=== PATIENT | male | born 1965 | race Caucasian/White ===

== ENCOUNTER 2018-02-03 12:56 | Emergency (ER) | payer MEDICAID ==
[~2018-02-03] VITALS: Ht 177.8 cm; Wt 82.5 kg
[2018-02-03 13:02] VITALS: Ht 177.8 cm; Wt 82.5 kg
[2018-02-03 13:57] LABS: BASOPHIL % 0.5 % (0-2); RED CELL DISTRIBUTION WIDTH 14.2 % (11.5-14.5)
[2018-02-03 14:05] LABS: microscopic required? NO
[2018-02-03 14:06] LABS: PLATELET COUNT 83 x10^3mcL (130-400)
[2018-02-03 14:26] LABS: urine erythrocyte NEGATIVE (NEGATIVE)
[2018-02-03 14:34] LABS: CALCIUM 8.5 mg/dL (8.5-10.1); CARBON DIOXIDE 25.9 mmol/L (21-32); CHLORIDE SERUM 106 mmol/L (98-107); CREATININE SERUM 0.6 mg/dL (0.7-1.3); GFR1 > 60 mL/min; GLUCOSE SERUM 90 mg/dL (74-106); POTASSIUM SERUM 4.1 mmol/L (3.5-5.1); SODIUM SERUM 135 mmol/L (136-145)
[2018-02-03 14:39] LABS: ALKALINE PHOSPHATASE 117 U/L (46-116); ALT/SGPT 253 U/L (16-63); AMYLASE 75 U/L (25-115); AST/SGOT 288 U/L (15-37); BILIRUBIN TOTAL 1.33 mg/dL (0.20-1.00); LIPASE 279 IU/L (73-393); TOTAL PROTEIN, SERUM 7.4 g/dL (6.4-8.2)
[2018-02-03 15:34] VITALS: BP 145/92
== END 2018-02-03 15:34 | disposition home or self-care (01) ==
LOC: ED 12:56
PROVIDERS: Emergency Medicine
DX: B17.10 Acute hepatitis C without hepatic coma (principal); R19.7 Diarrhea, unspecified; I10 Essential (primary) hypertension; F17.200 Nicotine dependence, unspecified, uncomplicated
CPT/HCPCS: J7030

== ENCOUNTER 2019-10-09 16:36 | Inpatient (IN) | payer OTHER ==
[~2019-10-09] VITALS: Ht 175.3 cm; Wt 95.3 kg
[2019-10-09 16:38] VITALS: Ht 175.3 cm; Wt 95.3 kg
[2019-10-09 18:18] LABS: BASOPHIL % 0.7 % (0-2); PLATELET COUNT 58 x10^3mcL (130-400); RED CELL DISTRIBUTION WIDTH 15.1 % (11.5-14.5)
[2019-10-09 18:28] LABS: CALCIUM 8.1 mg/dL (8.5-10.1); CARBON DIOXIDE 23.6 mmol/L (21-32); CHLORIDE SERUM 101 mmol/L (98-107); CREATININE SERUM 0.8 mg/dL (0.7-1.3); GFR1 > 60 mL/min; GLUCOSE SERUM 119 mg/dL (74-106); SODIUM SERUM 134 mmol/L (136-145)
[2019-10-09 18:33] LABS: ALKALINE PHOSPHATASE 126 U/L (46-116); ALT/SGPT 46 U/L (16-63); AST/SGOT 62 U/L (15-37); BILIRUBIN TOTAL 3.9 mg/dL (0.20-1.00); TOTAL PROTEIN, SERUM 7.6 g/dL (6.4-8.2)
[2019-10-09 18:52] LABS: ALBUMIN 2.8 g/dL (3.4-5.0); CHOLESTEROL 93 mg/dL (<200); HDL CHOLESTEROL 22 mg/dL (40-60)
[2019-10-09 18:58] LABS: microscopic required? NO
[2019-10-09 19:20] LABS: UA SPECIFIC GRAVITY 1.025 (1.005-1.035); urine erythrocyte NEGATIVE (NEGATIVE)
[2019-10-09] MEDS ORDERED: AMBIEN10 MG PO (19:52)
[2019-10-09] MEDS ORDERED: LISINOPRIL40 MG PO (19:52)
[2019-10-09 20:42] VITALS: BP 137/66
[2019-10-10 05:07] LABS: BASOPHIL % 0.3 % (0-2)
[2019-10-10 05:08] LABS: RED CELL DISTRIBUTION WIDTH 14.6 % (11.5-14.5)
[2019-10-10 05:09] LABS: PLATELET COUNT 44 x10^3mcL (130-400)
[2019-10-10 05:34] LABS: ALKALINE PHOSPHATASE 115 U/L (46-116); ALT/SGPT 40 U/L (16-63); AST/SGOT 55 U/L (15-37); CALCIUM 7.9 mg/dL (8.5-10.1); CARBON DIOXIDE 30.9 mmol/L (21-32); CHLORIDE SERUM 105 mmol/L (98-107); CREATININE SERUM 0.8 mg/dL (0.7-1.3); GFR1 > 60 mL/min; GLUCOSE SERUM 104 mg/dL (74-106); POTASSIUM SERUM 4.2 mmol/L (3.5-5.1); SODIUM SERUM 138 mmol/L (136-145); TOTAL PROTEIN, SERUM 6.6 g/dL (6.4-8.2)
[2019-10-10 05:36] LABS: ALBUMIN 2.4 g/dL (3.4-5.0)
[2019-10-10 05:45] VITALS: BP 116/73
[2019-10-10 08:02] VITALS: BP 117/72
[2019-10-10 12:14] VITALS: BP 120/69
[2019-10-10 15:12] VITALS: BP 133/79
[2019-10-10 20:44] VITALS: BP 127/82
[2019-10-11 06:07] VITALS: BP 95/51
[2019-10-11 06:38] LABS: BASOPHIL % 0.3 % (0-2)
[2019-10-11 06:39] LABS: CALCIUM 8.1 mg/dL (8.5-10.1); CARBON DIOXIDE 29.7 mmol/L (21-32); CHLORIDE SERUM 102 mmol/L (98-107); CREATININE SERUM 0.7 mg/dL (0.7-1.3); GFR1 > 60 mL/min; GLUCOSE SERUM 131 mg/dL (74-106); MAGNESIUM 1.7 mg/dL (1.8-2.4); POTASSIUM SERUM 3.9 mmol/L (3.5-5.1); SODIUM SERUM 136 mmol/L (136-145)
[2019-10-11 07:20] LABS: PLATELET COUNT 58 x10^3mcL (130-400); RED CELL DISTRIBUTION WIDTH 14.6 % (11.5-14.5)
[2019-10-11 08:05] VITALS: BP 113/72
[2019-10-11 11:37] VITALS: BP 112/65
[2019-10-11 16:13] VITALS: BP 116/62
[2019-10-11 20:25] VITALS: BP 123/78
[2019-10-12 05:53] VITALS: BP 110/62
[2019-10-12 08:05] LABS: BASOPHIL % 0.5 % (0-2); RED CELL DISTRIBUTION WIDTH 14.3 % (11.5-14.5)
[2019-10-12 08:06] LABS: PLATELET COUNT 63 x10^3mcL (130-400)
[2019-10-12 08:37] LABS: CALCIUM 8.1 mg/dL (8.5-10.1); CREATININE SERUM 0.7 mg/dL (0.7-1.3); GFR1 > 60 mL/min; GLUCOSE SERUM 136 mg/dL (74-106); MAGNESIUM 1.6 mg/dL (1.8-2.4)
[2019-10-12 08:45] VITALS: BP 101/58
[2019-10-12 09:17] LABS: CHLORIDE SERUM 104 mmol/L (98-107); POTASSIUM SERUM 4.1 mmol/L (3.5-5.1); SODIUM SERUM 136 mmol/L (136-145)
[2019-10-12 12:21] VITALS: BP 140/86
[2019-10-12 16:39] VITALS: BP 135/84
[2019-10-12] MEDS ORDERED: ACETAMINOPHEN-H1 TA1 PO (16:51)
[2019-10-12] MEDS ORDERED: COL100 PO (16:52)
[2019-10-12] MEDS ORDERED: AUGMENTIN 875-1 EACH PO (16:55)
[2019-10-12 17:19] VITALS: BP 135/84
== END 2019-10-12 17:54 | disposition home health service (06) | DRG 854 ==
LOC: ED 16:36 → MU 19:21
PROVIDERS: Emergency Medicine; Internal Medicine Pulmonary Disease; Surgery; ADMIT Internal Medicine Pulmonary Disease
PROC: 0D9P0ZZ Drainage of Rectum, Open Approach (ICD-10-PCS; principal; 2019-10-10 13:00)
DX: A41.9 Sepsis, unspecified organism (principal); K61.1 Rectal abscess; I10 Essential (primary) hypertension; B18.2 Chronic viral hepatitis C; D69.59 Other secondary thrombocytopenia; K59.00 Constipation, unspecified; K74.60 Unspecified cirrhosis of liver; Z88.8 Allergy status to other drugs, medicaments and biological substances; Z72.89 Other problems related to lifestyle; Z79.899 Other long term (current) drug therapy
CPT/HCPCS: G0378; J0295; J2270; J2405; J2543; J3010; J3370; J3475; J3490; J7030; J7040; J7120; P9035; Q0092

== ENCOUNTER 2020-02-06 16:57 | Emergency (ER) | payer OTHER ==
[~2020-02-06] VITALS: Ht 177.8 cm; Wt 94.3 kg
[~2020-02-06 16:57] MED LIST: ACETAMINOPHEN-H1 TA1 PO; AMBIEN10 MG PO; AUGMENTIN 875-1 EACH PO; COL100 PO; LISINOPRIL40 MG PO
[2020-02-06 17:24] VITALS: Ht 177.8 cm; Wt 94.3 kg
[2020-02-06 19:08] LABS: BASOPHIL % 0.8 % (0-2); PLATELET COUNT 59 x10^3mcL (130-400); RED CELL DISTRIBUTION WIDTH 15.4 % (11.5-14.5)
[2020-02-06 19:25] LABS: CALCIUM 8.7 mg/dL (8.5-10.1); CARBON DIOXIDE 26.5 mmol/L (21-32); CHLORIDE SERUM 101 mmol/L (98-107); CREATININE SERUM 0.7 mg/dL (0.7-1.3); GFR1 > 60 mL/min; GLUCOSE SERUM 112 mg/dL (74-106); POTASSIUM SERUM 3.6 mmol/L (3.5-5.1); SODIUM SERUM 135 mmol/L (136-145)
[2020-02-06 19:30] LABS: ALKALINE PHOSPHATASE 167 U/L (46-116); ALT/SGPT 55 U/L (16-63); AST/SGOT 78 U/L (15-37); TOTAL PROTEIN, SERUM 7.2 g/dL (6.4-8.2)
[2020-02-06 19:33] LABS: ALBUMIN 2.7 g/dL (3.4-5.0)
[2020-02-06 20:40] VITALS: BP 136/93
== END 2020-02-06 20:40 | disposition home or self-care (01) ==
LOC: ED 16:57
PROVIDERS: Emergency Medicine
DX: R60.1 Generalized edema (principal); F17.210 Nicotine dependence, cigarettes, uncomplicated; I10 Essential (primary) hypertension; R34 Anuria and oliguria; R06.02 Shortness of breath; R14.0 Abdominal distension (gaseous); Z88.8 Allergy status to other drugs, medicaments and biological substances
CPT/HCPCS: 83880